=== PATIENT | male | born 1990 | race Caucasian/White ===

== ENCOUNTER 2019-04-23 13:50 | Emergency (ER) | payer OTHER ==
[~2019-04-23] VITALS: Ht 180.3 cm; Wt 90.7 kg
[~2019-04-23 13:50] MED LIST: ALBIPROI INH; ALBU90OI INH; AMOX500 PO; AZIT250 PO; HYDACE5 PO; HYDGUAL120 PO; IBUP800 PO; OXYACE5T PO; PENVK500 PO; PRED10 PO; PRED20 PO; PROCODE120 PO; RXHYDACE PO; SULTRIDS PO; [UNRECOGNIZED DRUG - OTHER]
== END 2019-04-23 15:29 | disposition home or self-care (01) ==
LOC: ER 13:50
DX: K11.5 Sialolithiasis (principal); K11.20 Sialoadenitis, unspecified; J45.909 Unspecified asthma, uncomplicated; Z88.1 Allergy status to other antibiotic agents
CPT/HCPCS: 99282

== ENCOUNTER → 2022-05-28 | Outpatient (CLI) | payer OTHER ==
[2022-05-31 04:11] LABS: CHLAMYDIA TRACHOMATIS, NAA Negative (Negative)
== END | disposition home or self-care (01) ==
LOC: LAB SHORT 10:32 → LAB 10:32
PROVIDERS: Physician Assistant
DX: Z72.51 High risk heterosexual behavior (principal)
CPT/HCPCS: 87070; 87086; 87205; 87491; 87591